=== PATIENT | female | born 1990 | race Caucasian/White ===

== ENCOUNTER 2023-07-13 13:04 | Emergency (ER) | payer SELFPAY ==
[2023-07-13 13:28] VITALS: BP 115/85; PULSE 75; RESP 18; TEMP 98.2; BMI 32.0
[2023-07-13] MEDS ORDERED: IBUPROFEN 600 MG TABLET (FP) PO ONE (14:18)
[2023-07-13] MEDS: IBUPROFEN 600 MG TABLET (FP) PO ONE (14:28)
[2023-07-13 15:05] LABS: HEMATOCRIT 41.5 % (32.4-45.2); HEMOGLOBIN 13.4 G/dL (10.7-15.3); MCH 27.3 pg (25.7-33.7); MCHC 32.2 g/dl (32.0-36.0); MEAN CELL VOLUME 84.5 fl (80-96); PLATELET COUNT 221.1 10^3/uL (134-434); RBC 4.91 10^6/uL (3.60-5.2); RDW 15.3 % (11.6-15.6); WHITE BLOOD COUNT 6.4 10^3/uL (4.0-10.8)
[2023-07-13 15:13] LABS: BILIRUBIN,TOTAL 0.3 mg/dl (0.2-1); CALCIUM 8.7 mg/dl (8.5-10.1); CREATININE 0.5 mg/dl (0.6-1.3); MAGNESIUM 1.9 mg/dL (1.8-2.4); POTASSIUM 4.2 mmol/L (3.5-5.1)
[2023-07-13 16:11] LABS: ANISOCYTOSIS 1+; OVALOCYTE 1+; PLATELET ESTIMATE ADEQUATE
== END 2023-07-13 16:37 | disposition home or self-care (01) ==
LOC: FER 13:04
DX: R20.0 Anesthesia of skin (principal); R07.9 Chest pain, unspecified; R20.2 Paresthesia of skin
CPT/HCPCS: 36415; 71046-TC-FY; 80053; 83735; 84484; 84703; 85027; 93005; 99285-25